=== PATIENT | male | born 1945 | race Caucasian/White ===

== ENCOUNTER → 2023-11-30 06:24 | Day surgery (SDC) | payer MEDICARE, OTHER, SELFPAY ==
[2023-11-15 11:32] VITALS: BMI 24.5
== END ==
LOC: CATH 06:24
PROVIDERS: ATTENDING PHYSICIAN Internal Medicine Cardiovascular Disease; FAMILY PHYSICIAN Family Medicine; OTHER PHYSICIAN Internal Medicine Cardiovascular Disease
DX: I48.19 Other persistent atrial fibrillation (principal); I08.3 Combined rheumatic disorders of mitral, aortic and tricuspid valves; I10 Essential (primary) hypertension; E78.5 Hyperlipidemia, unspecified; K21.9 Gastro-esophageal reflux disease without esophagitis; N40.0 Benign prostatic hyperplasia without lower urinary tract symptoms; Z85.46 Personal history of malignant neoplasm of prostate; Z79.01 Long term (current) use of anticoagulants
CPT/HCPCS: 93325; 93320; 93312

== ENCOUNTER 2023-12-04 23:31 | Emergency (ER) | payer MEDICARE, OTHER, SELFPAY ==
[2023-12-04 23:34] VITALS: BP 153/87; BMI 24.8
[2023-12-04 23:59] LABS: % Basophils 0.8 % (0-2); % Eosinophils 1.2 % (0-6); % Immature Granulocytes 0.2 % (0-0.5); % Lymphocytes 26.9 % (20.5-51.1); % Monocytes 12.9 % (1.7-9.3); Absolute Basophils 0.1 10^3/uL (0-0.2); Absolute Eosinophils 0.1 10^3/uL (0-0.7); Absolute Lymphocytes 1.6 10^3/uL (1.2-3.4); Absolute Monocytes 0.8 10^3/uL (0.1-0.6); Absolute Neutrophils 3.5 10^3/uL (1.4-6.5); Hematocrit 42.4 % (39.0-52.0); Hemoglobin 14.2 g/dL (13.0-18.0); Mean Corp Hgb Conc. 33.5 g/dL (33.0-37.0); Mean Corpuscular Hgb 30.1 pg (27.0-31.0); Mean Corpuscular Volume 89.8 fL (80.0-94.0); Mean Platelet Volume 11.4 fL (7.4-10.4); Nucleated Red Blood Cells % 0 % (-); Platelet Count 114 10^3/uL (130-400); Red Blood Cell Count 4.72 10^6/uL (4.70-6.10)
[2023-12-05] VITALS: BP 136/83
--- NOTE | 2023-12-05 00:10 | ED.GENMED ---
History of Present Illness
<PRAVEEN Rodríguez - Last Filed: 12/05/23 00:27>
General
Chief Complaint: Visual Problem
Source: patient
Exam Limitations: none
Time Seen by Provider: 12/04/23 23:53
Nursing documentation reviewed up to this point in time: agreed with
Travel History
Have you had any contact with someone who has COVID-19?: No
Do you have any symptoms of coronavirus? Fever > 100 degrees, chills, cough, shortness of breath, sore throat, loss of taste or smell, muscle aches, or headache?: No
History of Present Illness
History of Present Illness:
Pt is a 78 yo male s/p ablation on tuesday for atrial fibrillation presents tonight following 2 brief episodes of blurry vision. Pt states that he was discharged yesterday at 10:30am. He slept more than usual today then was watching TV this evening
when a blur seemed to obscure his vision, moving from left to right quickly then resolved. The episode occurred again within 30 mins so he called the forge hand who told him to call 911 if he was worried. Denies headache, dizziness, lingering
blurry vision, palpitations, change in hearing, syncope, chest pain, shortness of breath. Since the ablation, pt says his watch has notified him that he is in afib 'a few times' but he has experienced no symptoms. Pt also states that he has not had
a bowel movement since which is unusual for him. Pt takes Eliquis and has not missed any doses except for tuesday morning for the ablation.
Review of Systems
<PRAVEEN Rodríguez - Last Filed: 12/05/23 00:27>
Review of Systems
Allergies reviewed?: Yes
All Other Systems: ROS reviewed and negative except as documented in HPI and ROS
Phy Exam
<PRAVEEN Rodríguez - Last Filed: 12/05/23 00:27>
General Physical Exam
General Presentation: well appearing and no apparent distress
General Skin: warm and dry
General Mental: alert
General Hydration: appears well hydrated
ENT Exam
ENT Exam: TM's normal, pharynx normal, neck supple, normocephalic and swallowing well
Eye Exam
Eye Exam: PERRL, EOMI, cornea clear and conjunctiva normal
Cardiovascular Exam
Cardiovascular Exam: no edema, no murmur, normal peripheral pulses and occasionally irregular
Pulmonary Exam
Pulmonary Exam: lungs clear, no respiratory distress, no rales, no crackles, no rhonchi, no wheezing and no cough
Gastrointestinal Exam
Gastrointestinal Exam: normal bowel sounds, non tender, soft and non distended
Neurological Exam
Neurological Exam: alert, oriented x3, no motor deficits and speech normal
Skin Exam
Skin Exam: normal color and warm/dry
Psychiatric Exam
Psychiatric Exam: normal mood/affect
Course
<ST MarcosUT - Last Filed: 12/05/23 00:27>
Orders/Labs/Results
Orders:
Orders
12/04/23 23:43
Complete Blood Count/With Diff Urgent
Comprehensive Metabolic Panel Urgent
Erythrocyte Sed Rate Urgent
Comment: ADD
12/05/23 00:35
Add On- LAB Urgent
Tests Added?: sed rate
CT Head W/o Iv Contrast Urgent
Comment:
Reason For Exam: acute left eye vision change/blurriness
Abnormal Lab Results
12/04/23
23:43
Plt Count 114 L 10^3/uL
(130-400)
MPV 11.4 H fL
(7.4-10.4)
Absolute Monos (auto) 0.8 H 10^3/uL
(0.1-0.6)
Monocytes % 12.9 H %
(1.7-9.3)
BUN 31 H mg/dl
(9-20)
Glucose 134 H mg/dl
(70-99)
AST 76 H U/L
(17-59)
12/04/23 23:43
12/04/23 23:43
Vital Signs
Initial and Last Documented VS:
Initial Vital Signs
Temp Pulse Resp BP Pulse Ox
98.3 F 59 18 153/87 99
12/04/23 23:34 12/04/23 23:34 12/04/23 23:34 12/04/23 23:34 12/04/23 23:34
Last Documented Vital Signs
Temp Pulse Resp BP Pulse Ox
98.3 F 59 18 153/87 99
12/04/23 23:34 12/04/23 23:34 12/04/23 23:34 12/04/23 23:34 12/04/23 23:34
<Annika Kidd, DO - Last Filed: 12/05/23 02:12>
Orders/Labs/Results
Orders:
Orders
12/04/23 23:43
Complete Blood Count/With Diff Urgent
Comprehensive Metabolic Panel Urgent
Erythrocyte Sed Rate Urgent
Comment: ADD
12/05/23 00:35
Add On- LAB Urgent
Tests Added?: sed rate
CT Head W/o Iv Contrast Urgent
Comment:
Reason For Exam: acute left eye vision change/blurriness
Abnormal Lab Results
12/04/23
23:43
Plt Count 114 L 10^3/uL
(130-400)
MPV 11.4 H fL
(7.4-10.4)
Absolute Monos (auto) 0.8 H 10^3/uL
(0.1-0.6)
Monocytes % 12.9 H %
(1.7-9.3)
BUN 31 H mg/dl
(9-20)
Glucose 134 H mg/dl
(70-99)
AST 76 H U/L
(17-59)
12/04/23 23:43
12/04/23 23:43
Vital Signs
Initial and Last Documented VS:
Initial Vital Signs
Temp Pulse Resp BP Pulse Ox
98.3 F 59 18 153/87 99
12/04/23 23:34 12/04/23 23:34 12/04/23 23:34 12/04/23 23:34 12/04/23 23:34
Last Documented Vital Signs
Temp Pulse Resp BP Pulse Ox
98.3 F 59 18 153/87 99
12/04/23 23:34 12/04/23 23:34 12/04/23 23:34 12/04/23 23:34 12/04/23 23:34
<Annika Kidd DO - Last Filed: 12/05/23 02:12>
*Radiology
Radiology exam reviewed: radiology read reviewed (CT of the head is unremarkable)
*Pulse Oximetry
Patient hypoxic: no
*[employer] Interpretation
Rate: normal
Interpretation: normal
Rhythm: sinus and PAC's
*Critical Care Note
Total Time (30-74mins, 75-104mins- exclusive of procedures): Not Applicable
ED Attending Note
<PRAVEEN Rodríguez - Last Filed: 12/05/23 00:27>
-
Portions of this chart may have been created with voice recognition software.� Occasional wrong word or��sound alike� substitutions may have occurred due to the inherent limitations of voice recognition software.
<Annika Kidd DO - Last Filed: 12/05/23 02:12>
ED Attending Note
Patient seen and examined by attending physician: Yes
I performed the substantive portion of visit, reviewed & personally made and approve the management plan that is documented in note by myself or BRYON.: Yes
I performed a history and physical exam of patient and discussed management with resident, I reviewed resident's note and agree with documented findings and plan of care.: Yes
ED Attending Note:
This is a 78-year-old gentleman with history of atrial fibrillation, has been maintained on Eliquis since 2017. He did undergo a cardioversion April 2023 but then A-fib recurred in August and has been persistent thus he underwent elective UMESH
November 30 that showed no evidence of left atrial appendage thrombus. He underwent A-fib ablation December 02. He was monitored overnight and was discharged to home December 03. He does admit to feeling mildly fatigued but has had no palpitations,
no chest pain, no dizziness nor lightheadedness.
Tonight while watching TV he had 2 episodes of very brief blurriness primarily left eye that seemed to start in his left thigh peripheral vision and moved medially describing this as blurry vision but he denies loss of vision, he denies a curtain
type affect. Blurry vision was brief lasting a second or 2 and resolved but then recurred, again very briefly lasting 1 to 2 seconds approximately 30 minutes later. He did call his forge hand, spoke to forge hand on-call who did not believe
these episodes of blurred vision were cardiac related but suggested he come to the ED for further evaluation.
Patient has had no further episodes. He continues to deny headache, no vision difficulty.
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 This has been stable and unchanged.
He does follow regularly with ophthalmology. He wears corrective lenses/glasses. No recent change in his prescription.
78-year-old gentleman appears his stated age, awake and alert, pleasant, appears in no acute distress.
HEENT: Pupils are equal reactive, extraocular muscles intact. No APD. Discs are sharp bilaterally. Visual acuity intact bilaterally. Visual aguayo are full. Oral mucosa is moist.
Neck: Supple, nontender, no JVD nor bruit.
Heart is regular rate and rhythm without murmur.
Lungs are clear to auscultation. Respirations are easy and nonlabored.
Abdomen is soft and nontender.
Extremities without clubbing or cyanosis or edema. Peripheral pulses are full and full. Nontender.
Neuro: Awake alert and oriented x 3. Minimal lid lag on right is chronic and unchanged as per patient. Otherwise cranial nerves II through XII grossly intact. Motor strength 5/5 bilaterally. Gross sensation is intact. Gait is boyd and steady.
Concern for brief TIA, other consideration is eyestrain, arrhythmia, brief vasovagal episode.
It is reassuring that episode was brief, lasting 1 to 2 seconds and resolved.
Not convincing for vasovagal episode nor atrial fibrillation but will continue cook helper dessert and continue to monitor vital signs.
Labs thus far unremarkable. Mild but stable thrombocytopenia with platelet count of 114. Similar to previous.
Chemistries are unremarkable, minimally elevated BUN which is similar to previous. Normal creatinine.
Random glucose minimally elevated at 134, improved from yesterday morning at 159.
Minimally elevated AST at 76, all other LFTs within normal limits.
Will continue cook helper dessert.
Will continue to observe for return of visual symptoms.
Will check CT of the head.
12/05/[address] of the head is unremarkable.
Monitor continues to show normal sinus rhythm with occasional PACs.
Patient has had no return of blurred vision and continues to feel well.
As above, at this point no definitive cause for brief, 1 second blurred vision but reassuring that symptoms resolved quickly and have not recurred.
Recommend he continue his current medications including twice daily Eliquis.
Will discharge to home with recommendations to follow-up with his direct mail clerk and continue follow-up with cardiology as already planned.
Discharge Plan
Departure
Patient Disposition: Home (Routine Discharge)
Date of Disposition: 12/05/23
Time of Disposition: 01:59
Patient with high blood pressure during this ER visit?: No
Condition: Good
Discharge Problem:
blurred vision, left eye-self limiting
Instructions: Eyestrain, Double Vision (DC)
Prescriptions:
No Action
ascorbic acid (vitamin C) [Vitamin C] 500 mg Tablet
500 mg PO QPM
rosuvastatin 5 mg Tablet
5 mg PO DAILY
alfuzosin 10 mg Tablet Extended Release 24 Hr
10 mg PO QPM
cholecalciferol (vitamin D3) [Vitamin D3] 50 mcg (2,000 unit) Tablet
50 mcg PO DAILY
apixaban 5 mg Tablet
5 mg PO BID
cyanocobalamin (vitamin B-12) 1,000 mcg Capsule
1,000 mcg PO .EVERY OTHER DAY
Referrals:
Rashaun Thornton MD [Family Provider] - Call in 1-3 days for appt
Activity Restrictions/Additional Instructions:
Call your direct mail clerk tomorrow for follow-up visit.
Interventions
Interventions:
*Risk Screen - Suicide Last Done: 12/04/23 23:34
*General Assessment Last Done: 12/04/23 23:34
*Neglect/Abuse Screening Last Done: 12/04/23 23:34
*ED COVID-19 Vaccine History Last Done: 12/04/23 23:34
ED- Neurological Assessment Last Done: 12/04/23 23:38
ED-EENT Assessment Last Done: 12/04/23 23:38
[2023-12-05 00:14] LABS: ALT (SGPT) 41 U/L (0-50); AST (SGOT) 76 U/L (17-59); Albumin 3.8 g/dl (3.5-5.0); Alkaline Phosphatase 74 U/L (38-126); Blood Urea Nitrogen 31 mg/dl (9-20); Calcium 9.4 mg/dl (8.4-10.2); Carbon Dioxide 30 mmol/L (22-30); Chloride 101 mmol/L (98-107); Estimated Creatinine Clearance 69 ml/min; Glucose 134 mg/dl (70-99); Potassium 4.1 mmol/L (3.5-5.1); Sodium 141 mmol/L (135-145); Total Bilirubin 0.6 mg/dl (0.2-1.3); Total Protein 6.5 g/dl (6.3-8.2); eGFR > 60.00
[2023-12-05 00:54] LABS: Erythrocyte Sed Rate 9 mm/hour (0-20)
[2023-12-05 03:23] VITALS: BP 136/92
== END 2023-12-05 03:24 | disposition home or self-care (01) ==
LOC: EMR 23:31
PROVIDERS: EMERGENCY PHYSICIAN Emergency Medicine; FAMILY PHYSICIAN Family Medicine
DX: H53.8 Other visual disturbances (principal); I48.91 Unspecified atrial fibrillation
CPT/HCPCS: 99284; 70450; 80053; 85025; 85652

== ENCOUNTER 2023-12-16 09:11 | Day surgery (SDC) | payer MEDICARE, OTHER, SELFPAY ==
--- NOTE | 2023-12-16 17:52 | ITS.CL.CARDI ---
Drilling Foreman - Cardioversion
Cardioversion
Procedure Report:
Date of Procedure: 12/16/23
Procedure: Cardioversion
Indication: Symptomatic atrial fibrillation
Performing Physician: Nathalie Zuleta DO [facility]
Anticoagulation: Eliquis
Transesophageal echocardiogram 11/30/2023: No thrombus detected in left atrial appendage
Intracardiac ultrasound performed day of EP study/ablation December 02, 2023: No atrial thrombus
Technique: The patient was brought to the holding area. Signed informed consent was obtained. A time out was called and performed. The patient was anesthetized by the anesthesia service. Anticoagulation status was reviewed and appropriate. R2 pads
were placed anteriorly and posteriorly. A 200 J synchronized biphasic shock restored normal sinus rhythm without significant bradycardia. There were no complications. Postprocedure EKG sinus bradycardia with incomplete right bundle branch block and
age-indeterminate inferior and anterior infarct.
Conclusion: Uncomplicated cardioversion from atrial fibrillation to sinus rhythm.
Recommendation: Routine post cardioversion care. Continue terminal carman anticoagulation.
== END 2023-12-16 12:00 | disposition home or self-care (01) ==
LOC: CATH 09:11
PROVIDERS: ATTENDING PHYSICIAN Internal Medicine Cardiovascular Disease; FAMILY PHYSICIAN Family Medicine; OTHER PHYSICIAN Internal Medicine Cardiovascular Disease
DX: I48.19 Other persistent atrial fibrillation (principal); I10 Essential (primary) hypertension; E78.5 Hyperlipidemia, unspecified; K21.9 Gastro-esophageal reflux disease without esophagitis; Z85.46 Personal history of malignant neoplasm of prostate; Z79.01 Long term (current) use of anticoagulants
CPT/HCPCS: 92960; 93005